=== PATIENT | female | born 1985 | race African-American/Black ===

== ENCOUNTER → 2020-05-14 | Outpatient (REF) ==
--- NOTE | 2020-05-15 03:44 | REP ---
INDICATION: [facility]- LABS FIRST COMPARISON: None. TECHNIQUE: PA and lateral. FINDINGS: The mediastinum and cardiac silhouette are normal. The lung rai are clear and without acute consolidation, effusion, or pneumothorax. The skeletal structures are intact and normal. IMPRESSION: No acute cardiopulmonary process. <Electronically signed by Neil Morrow > 05/15/20 [id number]
== END ==
LOC: M LAB 14:37
PROVIDERS: ATTEND Nurse Practitioner Adult Health
DX: Z11.52 Encounter for screening for COVID-19 (principal)

== ENCOUNTER → 2020-05-21 | Outpatient (REF) | LOC: M LAB 13:59 | PROVIDERS: ATTEND Nurse Practitioner Adult Health | DX: Z00.00 Encounter for general adult medical examination without abnormal findings (principal) ==

== ENCOUNTER → 2020-05-27 | Outpatient (REF) | payer OTHER ==
[2020-05-27 10:32] LABS: BASO # 0.1 10^3/uL (0.0-0.2); BASO % 0.5 % (0.0-1.0); EOS # 0.4 10^3/uL (0.0-0.5); EOS % 3.9 % (0.0-3.0); HEMATOCRIT 39.7 % (36.0-47.0); HEMOGLOBIN 12.5 g/dl (12.0-15.5); LYMPH # 3.2 10^3/uL (1.5-5.0); LYMPH % 33.3 % (24.0-44.0); MEAN CORPUSCULAR HEMOGLOBIN 25.3 pg (27.0-33.0); MEAN CORPUSCULAR HGB CONC 31.5 g/dl (32.0-36.5); MEAN CORPUSCULAR VOLUME 80.4 fl (80.0-96.0); MONO % 9.9 % (2.0-8.0); PLATELET COUNT, AUTOMATED 322 10^3/uL (150-450); RED BLOOD COUNT 4.94 10^6/uL (4.00-5.40); WHITE BLOOD COUNT 9.6 10^3/uL (4.0-10.0)
[2020-05-27 10:57] LABS: ALBUMIN 3.5 GM/DL (3.2-5.2); ALT/SGPT 18 U/L (12-78); BILIRUBIN,TOTAL 0.2 MG/DL (0.2-1.0); BLOOD UREA NITROGEN 13 MG/DL (7-18); CALCIUM LEVEL 9.1 MG/DL (8.5-10.1); CARBON DIOXIDE LEVEL 28 MEQ/L (21-32); CHLORIDE LEVEL 106 MEQ/L (98-107); CREATININE FOR GFR 0.74 MG/DL (0.55-1.30); GLOMERULAR FILTRATION RATE > 60.0 (>60); GLUCOSE, FASTING 81 MG/DL (70-100); POTASSIUM SERUM 4.1 MEQ/L (3.5-5.1); SODIUM LEVEL 140 MEQ/L (136-145); TOTAL PROTEIN 7.5 GM/DL (6.4-8.2)
== END ==
LOC: M SFHCPLAZ 08:42
PROVIDERS: ATTEND Internal Medicine Infectious Disease
DX: Z22.7 Latent tuberculosis (principal)

== ENCOUNTER → 2020-08-18 | Outpatient (CLI) | payer OTHER, MEDICAID ==
[2020-08-18 14:11] LABS: ALBUMIN 3.7 GM/DL (3.2-5.2); BILIRUBIN,DIRECT 0.1 MG/DL (0.0-0.2); BILIRUBIN,TOTAL 0.3 MG/DL (0.2-1.0); CHOLESTEROL RISK RATIO 5.063 (<5); THYROID STIMULATING HORMONE 1.09 uIU/ML (0.358-3.740); TOTAL PROTEIN 7.5 GM/DL (6.4-8.2)
[2020-08-18 14:22] LABS: HEMOGLOBIN A1c 5.9 %
== END ==
LOC: M PLALAB 10:28
PROVIDERS: ATTEND Internal Medicine Infectious Disease
DX: R63.5 Abnormal weight gain (principal)

== ENCOUNTER 2022-03-29 19:45 | Emergency (ER) | payer MEDICAID, OTHER ==
[~2022-03-29] VITALS: Ht 162.6 cm; Wt 100.0 kg
[2022-03-29 21:44] LABS: APPEARANCE, URINE MANUAL TURBID (CLEAR); COLOR, URINE MANUAL RED (YELLOW)
[2022-03-29 21:45] LABS: GLUCOSE, URINE (UA) MANUAL NEGATIVE (NEGATIVE); KETONE, URINE MANUAL OBSCURED mg/dL (NEGATIVE); PH,URINE MAN 7.5 UNITS (5.0 - 7.0); PROTEIN, URINE MANUAL 3+ mg/dL (NEGATIVE)
[2022-03-29 21:46] LABS: BILIRUBIN, URINE MANUAL NEGATIVE (NEGATIVE); BLOOD URINE MANUAL POSITIVE (NEGATIVE); LEUKOCYTE ESTERASE, URINE MAN POSITIVE (NEGATIVE); NITRITE, URINE MANUAL NEGATIVE (NEGATIVE); UROBILINOGEN, URINE MANUAL OBSCURED mg/dl (NORMAL)
[2022-03-29 21:47] LABS: RBC, URINE TNTC /hpf (0-3)
[2022-03-29 21:48] LABS: BACTERIA, URINE SMALL AMOUNT; SQUAMOUS EPITHELIAL CELL URINE NONE SEEN /hpf (SMALL AMT)
[2022-03-29 21:49] LABS: HYALINE CAST, URINE NONE SEEN /lpf (0-1)
[2022-03-29 22:12] VITALS: BP 115/65
[2022-03-29 22:46] LABS: BLOOD UREA NITROGEN 10 MG/DL (9-23); CALCIUM LEVEL 9.6 MG/DL (8.5-10.1); CARBON DIOXIDE LEVEL 27 MMOL/L (20-31); CHLORIDE LEVEL 103 MMOL/L (98-107); CREATININE FOR GFR 0.81 MG/DL (0.55-1.30); GLOMERULAR FILTRATION RATE > 60.0 (>60); GLUCOSE, FASTING 99 MG/DL (60-100); HCG, SERUM QUALITATIVE POSITIVE (NEGATIVE); POTASSIUM SERUM 4.4 MMOL/L (3.5-5.1); SODIUM LEVEL 138 MMOL/L (136-145)
[2022-03-29 22:52] LABS: INR 1.08; PROTHROMBIN TIME 14.2 SECONDS (12.5-14.5)
[2022-03-29 22:53] LABS: BASO # 0.1 10^3/uL (0.0-0.2); BASO % 0.4 % (0.0-1.0); EOS # 0.1 10^3/uL (0.0-0.5); EOS % 0.4 % (0.0-3.0); HEMATOCRIT 36.7 % (36.0-47.0); HEMOGLOBIN 11.7 g/dl (12.0-15.5); LYMPH # 2.6 10^3/uL (1.5-5.0); MEAN CORPUSCULAR HEMOGLOBIN 25.8 pg (27.0-33.0); MEAN CORPUSCULAR HGB CONC 31.9 g/dl (32.0-36.5); MEAN CORPUSCULAR VOLUME 80.8 fl (80.0-96.0); MONO # 1.2 10^3/uL (0.0-0.8); MONO % 8.6 % (2.0-8.0); NEUTROPHILS # 9.6 10^3/uL (1.5-8.5); NEUTROPHILS % 71.1 % (36.0-66.0); PLATELET COUNT, AUTOMATED 243 10^3/uL (150-450); RED BLOOD COUNT 4.54 10^6/uL (4.00-5.40); WHITE BLOOD COUNT 13.5 10^3/uL (4.0-10.0)
[2022-03-30 02:16] LABS: HCG, SERUM QUANTITATIVE 6165.6 MIU/ML (<4.2)
[2022-03-30] MEDS ORDERED: CEFP200T PO (05:11)
== END 2022-03-30 05:52 | disposition home or self-care (01) ==
LOC: EDBD 19:45 → M ED 19:45
DX: O02.1 Missed abortion (principal); N39.0 Urinary tract infection, site not specified